=== PATIENT | female | born 1945 | race Caucasian/White ===

== ENCOUNTER → 2025-03-22 | Outpatient (CLI) | payer MEDICARE, OTHER ==
--- NOTE | 2025-03-23 07:32 | CONSULTATION ---
DATE OF CONSULTATION: 03/22/2025 DICTATING PHYSICIAN: Nayeli Jamison M.S., [facility] MODIFIED BARIUM SWALLOW STUDY REPORT REFERRING PHYSICIAN: Diana Allred DO HISTORY OF PRESENT ILLNESS: The patient is an 80-year-old female and consents for this evaluation. The patient's was present for this evaluation. History is obtained from the patient and medical record. The patient reports symptoms of dysphagia including choking on dry foods and meats. She notes that this has been occurring for years. She also notes that occasionally it occurs on liquids. The patient has a diagnosis of Parkinson's disease several years ago. She used to go to the group classes for voice, but she has not gone in a long time. She was noted to have a very low vocal intensity and needed to repeat herself often to be understood. CURRENT DIET: The patient does not consume caffeine. She does not utilize tobacco products or drink alcohol. She eats chocolate on a daily basis and dairy on a daily basis. A typical breakfast consists of honey bunches of oats with bananas and blueberries. She snacks throughout the day on items such as chocolate, bananas, Pop-Tarts, peanut butter, honey and jam, [employer] cups and [place] bars. A typical lunch may be a chicken sandwich and an orange, and a typical dinner may be pork chops and a salad. MEDICATIONS: Diflucan 200 mg one tablet once weekly, permethrin 5% topical cream apply as directed to all areas of the body from the neck to the soles of the feet, leave on for 8-14 hours before removing by washing, hydrocodone 5 mg - acetaminophen 325 mg one tablet by mouth twice daily p.r.n., loratadine 10 mg one tablet once daily for 30 days, carvedilol 6.25 mg one tablet twice daily orally, carbidopa ER 50 mg/Levodopa 200 mg extended release, cholecalciferol 1250 mcg one capsule once weekly, pramipexole 0.125 mg, solifenacin 5 mg, gabapentin 100 mg one capsule 3 times daily, nystatin 100,000 units/mL oral suspension 5 mL by mouth 4 times a day, paroxetine 40 mg one tablet once daily orally, omeprazole [address] one capsule once daily orally, clopidogrel 75 mg one tablet once daily orally, atorvastatin 40 mg one tablet once daily orally, dicyclomine 10 mg one capsule twice daily p.r.n., amitriptyline 25 mg one tablet once daily orally, levothyroxine 75 mcg one tablet once daily orally, triamcinolone acetonide 0.1% cream applied to affected area twice a day, clotrimazole 1% cream applied a small amount to affected area twice a day. Vitamin B12, 5000 mcg one tablet once daily, fluticasone propionate 50 mcg/actuation spray suspension two sprays in each nostril daily, [facility]-3 fish oil 1200 mg 2 capsule by mouth once daily, Lutein 6 mg capsule, aspirin 81 mg one tablet once daily orally. PARAMETERS: The patient is seated in a lateral 90-degree view and administered the usual protocol of thin and nectar thick liquids, puree and solid consistencies, as well as self-regulated boluses of thin liquids from a cup. RESULTS: The patient was noted to have a slow transit of the bolus, especially through the oral cavity. She would hold the bolus for a short period of time before beginning to propel the bolus from the anterior to the posterior oral cavity. In the oral stage of the swallow, lingual strength was mild to moderately reduced. She was noted to use a lingual rocking motion to propel that bolus from the anterior to the posterior oral cavity. There was a moderate oral residue on the tongue base following the initial swallow of boluses. In the pharyngeal stage of the swallow, tongue base retraction was moderately reduced. Swallow initiation was delayed to the level of the vallecula. Anterior movement of the posterior pharyngeal wall was observed. Elevation of the hyothyroid complex was accomplished with mildly reduced superior movement of the hyoid, but full epiglottic inversion. There was a mild to moderate pharyngeal residue at the level of the vallecula. PES opening is within functional limits. At no time is the patient noted to penetrate or aspirate on the bolus sizes or consistencies. ANTERIOR, POSTERIOR VIEW: In the AP plane, the bolus splits symmetrically between the piriform sinuses and there was proximal movement of the boluses to the level of the mid sternum. IMPRESSION: The patient demonstrates what appears to be a moderate oropharyngeal stage swallowing disorder characterized by reduced lingual strength, reduced tongue base retraction, delayed swallow initiation to the level of the vallecula, and oropharyngeal residue. The patient also demonstrates with mild to moderate pharyngoesophageal stage swallowing disorder characterized by proximal movement of the boluses in the AP view to the level of the mid sternum. 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 PATIENT EDUCATION: Immediately following modified barium swallow study, the patient and her were able to view the results. The patient was able to see how the current status of the oral motor and swallowing mechanism decreases her ability to swallow normally. She was educated on a recommendation for speech and swallowing therapy in order to strengthen the muscles involved in swallowing. She indicated that she would think about it at this time and let the clinician know on Tuesday if she decides to proceed. The patient was also educated on dietary modifications for laryngopharyngeal reflux disease with written handout provided. RECOMMENDATIONS: * It is recommended the patient receive concomitant speech-voice and swallowing therapy one time weekly for 12 weeks to improve the strength and range of motion of the swallowing musculature to ensure airway safety protection and prevent aspiration. * It is recommended the patient follow the dietary modifications for laryngopharyngeal reflux disease. LONG-TERM GOALS: The patient will maintain adequate hydration/nutrition with optimum safety and efficiency of swallow function on p.o. intake without overt signs and symptoms of aspiration for the highest possible diet level. PROGNOSIS: Prognosis for the patient is fair to good depending on if she decides to pursue swallowing therapy and also in terms of family support. FUNCTIONAL ORAL INTAKE: The FOIS was administered to establish and document a change in the functional eating activities of this patient over time. This is a 7-point scale with 1 indicating no oral intake and totally tube dependent and 7 indicating total oral intake with no restrictions. This patient received a 6, which indicates she has a total oral diet with multiple consistencies without special preparation but with specific food limitations and precautions. G-CODE: [id number]. Thank you very much for asking me to participate in the care of this kind patient. Should you have any questions regarding this evaluation or recommendations, please do not hesitate to contact me at [phone]. During this examination, 4 minutes 18 seconds of fluoroscopy time and 20.42 CAK mGy were utilized. Nayeli Jamison M.S., [employer] TID: [id number] RECEIPT: [id number] KIMBERLY/JOHN/PATSY
== END | disposition home or self-care (01) ==
LOC: RAD 11:55
PROVIDERS: ATTEND Student in an Organized Health Care Education/Training Program
DX: R13.14 Dysphagia, pharyngoesophageal phase (principal); G20.B2 Parkinson's disease with dyskinesia, with fluctuations; K21.9 Gastro-esophageal reflux disease without esophagitis
CPT/HCPCS: 74230